=== PATIENT | male | born 1985 | race Caucasian/White ===

== ENCOUNTER 2018-06-29 17:33 | Inpatient (IN) | payer MEDICAID ==
[~2018-06-29] VITALS: Ht 177.8 cm; Wt 110.0 kg
[2018-06-29 18:08] LABS: HEMOGLOBIN 13.9 g/dl (14.0-17.9)
[2018-06-29 18:09] LABS: HEMATOCRIT 43.7 % (42.0-52.0); MEAN CORPUSCULAR HEMOGLOBIN 28.2 PG (27.0-31.0); MEAN CORPUSCULAR HGB CONC 31.8 g/dL (33.0-36.5); MEAN CORPUSCULAR VOLUME 88.6 FL (78-98); MEAN PLATELET VOLUME 8.5 FL (7.4-10.4); PLATELET COUNT 216 X10'3 (140-440); RED BLOOD COUNT 4.93 X10'6 (4.70-6.10); RED CELL DISTRIBUTION WIDTH 17.3 % (11.5-14.5); WHITE BLOOD COUNT 7.3 X10'3 (4.5-11.0)
[2018-06-29 18:26] LABS: ALANINE AMINOTRANSFERASE 58 U/L (12-78); ALBUMIN 3.1 G/DL (3.4-5.0); ALBUMIN/GLOBULIN RATIO 0.7 (1.1-1.5); ALKALINE PHOSPHATASE 182 IU/L (46-116); ANION GAP 4 (8-16); ASPARTATE AMINO TRANSFERASE 52 U/L (10-37); BILIRUBIN,TOTAL 1.8 MG/DL (0.1-1.0); BLOOD UREA NITROGEN 26 MG/DL (7-18); BUN/CREATININE RATIO 19.3 (5.4-32.0); CALCIUM 9.2 MG/DL (8.5-10.1); CHLORIDE 104 MMOL/L (99-107); CREATININE 1.35 MG/DL (0.60-1.10); GLUCOSE 135 MG/DL (70-104); POTASSIUM 3.8 MMOL/L (3.5-5.1); SODIUM 140 MMOL/L (135-145); TOTAL CARBON DIOXIDE 32.5 MMOL/L (24-32); TOTAL PROTEIN 7.5 G/DL (6.4-8.2); eGFR 60 ML/MIN
[2018-06-29 18:30] LABS: INR 1.2 INR; PARTIAL THROMBOPLASTIN TIME 27 SECONDS (22-32); PROTHROMBIN TIME 12.4 SECONDS (9.0-12.0)
[2018-06-29 18:39] LABS: CLARITY,URINE CLEAR (Clear); GLUCOSE, URINE NEGATIVE (Neg); KETONES,URINE NEGATIVE (Neg); LEUKOCYTE ESTERASE ,URINE NEGATIVE (Neg); NITRITES, URINE NEGATIVE (Neg); OCCULT BLOOD,URINE NEGATIVE (Neg); PROTEIN,URINE 30 mg/dl (Neg)
[2018-06-29 18:45] LABS: COLOR,URINE DARK YELLOW (Yellow); UA COLLECTION TYPE CLN CATCH MIDSTREAM; URINE AMPHETAMINE SCREEN POSITIVE (Neg); URINE BARBITUATE SCREEN NEGATIVE (Neg); URINE BENZODIAZEPINES SCREEN NEGATIVE (Neg); URINE CANNABINOID SCREEN NEGATIVE (Neg); URINE COCAINE SCREEN NEGATIVE (Neg); URINE METHADONE SCREEN NEGATIVE (Neg); URINE OPIATE SCREEN NEGATIVE (Neg); URINE PHENCYCLIDINE SCREEN NEGATIVE (Neg); WBC,URINE NONE SEEN /HPF (0-4)
[2018-06-29] MEDS ORDERED: aspirin 325mg tablet PO ONE (18:45)
[2018-06-29 18:46] LABS: BACTERIA,URINE NONE SEEN /HPF (Neg); HYALINE CASTS 0-3 /LPF (NEGATIVE); RBC,URINE NONE SEEN /HPF (0-2); SQUAMOUS EPITHELIAL CELL,UR NONE SEEN /LPF (FEW)
[2018-06-29] MEDS ORDERED: furosemide 10 MG/1 ML 10ml inj IV ONE (18:55)
[2018-06-29 19:11] LABS: TOTAL CELLS COUNTED 100
[2018-06-29 19:12] LABS: ANISOCYTOSIS 1+; PLATELET ESTIMATE NORMAL
[2018-06-29] MEDS ORDERED: ondansetron/PF 4mg/2ml inj IV PRN (19:50)
[2018-06-29] MEDS ORDERED: magnesium Cl slow-release 64mg tablet PO PRN (19:50)
[2018-06-29] MEDS ORDERED: acetaminophen 325mg tablet PO PRN ×2 (19:50)
[2018-06-29] MEDS ORDERED: potassium Cl 40MEQ/NS 500ml 500 ML IV PRN ×2 (19:50)
[2018-06-29] MEDS ORDERED: magnesium 4gm in 100ml NS 100 ML IV PRN (19:50)
[2018-06-29] MEDS ORDERED: magnesium hydroxide 30ml (MOM) UD suspension PO PRN (19:50)
[2018-06-29] MEDS ORDERED: magnesium 2GM in 50ml NS 50 ML IV PRN (19:50)
[2018-06-29] MEDS ORDERED: mag hydrox/Alum hydrox/simeth 30ml oral suspension PO PRN (19:50)
[2018-06-29] MEDS ORDERED: potassium Cl 20 mEq SR tablet PO PRN ×2 (19:50)
--- NOTE | 2018-06-29 20:42 | NUR ---
RELIEVING RN FOR BREAK, PT IS RESTING QUIETLY ON GURNEY, GAVE PT WARM BLANKET, PILLOW AND EMPTIED URINAL OF 700ML OF CLEAR YELLOW URINE
[2018-06-29] MEDS ORDERED: temazepam 15mg capsule PO PRN (21:00)
[2018-06-30] MEDS: furosemide 40mg/4ml inj IV SCH ×4 (00:31→23:42)
[2018-06-30] MEDS ORDERED: FURO-149 PO (00:37)
[2018-06-30] MEDS ORDERED: POTA10TA15 PO (00:39)
--- NOTE | 2018-06-30 01:00 | NUR ---
Report received from ER Nurse Cristina. Pt coming up from ER to room 2708S
[2018-06-30 02:00] VITALS: BP 154/120
[2018-06-30] MEDS ORDERED: LORazepam 2 mg/ml vial IV ONE (03:30)
--- NOTE | 2018-06-30 03:45 | NUR ---
Call placed to Dr Romero about pt BP 158/121 R and 152/108 L. He was 153/120 R and 149/104 L when he first came. had pt lay down and try to relax since he was falling asleep sitting on edge of bed, sweating, and fidgeting. Rechecked after he had rested a bit got got the high readings mentioned above. Order given for Ativan 1mg IV x 1 dose for patient.
--- NOTE | 2018-06-30 05:30 | NUR ---
RN and maintenance shop laborer both attempted to wake pt. RN needed recheck BP after orders obtained for Ativan dose by MD for anxiety and increased BP. He started cussing and swinging his arms at both of them and stated "get the .... away from me now!" he is refusing to wear his oxygen as well/
--- NOTE | 2018-06-30 05:30 | NUR ---
Pt needed to be rechecked for BP and needed labs taken. technical associate and RN were in with pt and trying to wake him up so that she could get labs and RN could get BP. He started swinging and cursing and stated to leave
--- NOTE | 2018-06-30 06:35 | NUR ---
Patient in room PCU 3017. I have received report from Rubia DEE and had the opportunity to ask questions and assume patient care.
[2018-06-30 06:57] VITALS: BP 129/108
[2018-06-30] MEDS: aspirin 81mg tablet.DR PO SCH (07:52)
[2018-06-30] MEDS: enoxaparin 30mg/0.3ml syringe SUBCUT SCH (08:00)
[2018-06-30] MEDS: K and/or MAG REPLACEMENT MC SCH (08:00)
[2018-06-30] MEDS: carvedilol 6.25mg tablet PO SCH ×3 (10:05→19:55)
[2018-06-30] MEDS: spironolactone 25 MG tablet PO SCH ×2 (10:05→15:54)
[2018-06-30 11:00] VITALS: BP 138/81
--- NOTE | 2018-06-30 12:48 | NUR ---
PAGER ID: [phone] MESSAGE: [id number] SUKHJINDER MARINA DELLA SHUBHAMGianna FRANCISCO Addendum: 06/30/18 at 1248 by Stacey Montalvo RN Amended: Links added.
--- NOTE | 2018-06-30 13:18 | NUR ---
Sent page to Dr. Sethi: PAGER ID: [phone] MESSAGE: [id number] [place]: Patient is increasingly irritable, becoming very anxious. Can he have PRN Ativan? Thanks, Julienne [phone]
[2018-06-30] MEDS: LORazepam 0.5 MG tablet PO PRN (15:54)
--- NOTE | 2018-06-30 16:15 | NUR ---
Patient refusing 1500 vital signs
--- NOTE | 2018-06-30 18:17 | NUR ---
Problems reprioritized. Patient report given, questions answered & plan of care reviewed with Rush DEE. Bedside report complete, patient stable at transfer of care.
--- NOTE | 2018-06-30 18:24 | NUR ---
[place] documentation: I have reviewed and agree with all interventions, assessments performed and documented by Concha DEE. [place] Medication Administration: For this medication-pass time frame, all medication were reviewed, dispensed, administered and documented per hospital policy by Concha DEE.
[2018-06-30 19:00] VITALS: BP 158/114
[2018-06-30 23:00] VITALS: BP 122/85
[2018-07-01 05:20] LABS: BASOPHILS # (AUTO) 0.1 X10'3 (0-0.2); BASOPHILS % (AUTO) 0.9 % (0-1); EOSINOPHILS # (AUTO) 0.1 X10'3 (0-0.9); EOSINOPHILS % (AUTO) 2.2 % (0-6); HEMOGLOBIN 12.9 g/dl (14.0-17.9); LYMPHOCYTES % (AUTO) 13.9 % (21-51); MEAN CORPUSCULAR HEMOGLOBIN 28.7 PG (27.0-31.0); MEAN CORPUSCULAR VOLUME 86.8 FL (78-98); MEAN PLATELET VOLUME 8.6 FL (7.4-10.4); MONOCYTES # (AUTO) 0.8 X10'3 (0-0.9); MONOCYTES % (AUTO) 11.5 % (2-12); NEUTROPHILS # (AUTO) 4.9 X10'3 (1.8-7.7); NEUTROPHILS % (AUTO) 71.5 % (42-75); PLATELET COUNT 195 X10'3 (140-440); RED BLOOD COUNT 4.49 X10'6 (4.70-6.10); RED CELL DISTRIBUTION WIDTH 17.4 % (11.5-14.5); WHITE BLOOD COUNT 6.9 X10'3 (4.5-11.0)
[2018-07-01 05:44] LABS: ALBUMIN 2.9 G/DL (3.4-5.0); ANION GAP 10 (8-16); BLOOD UREA NITROGEN 36 MG/DL (7-18); BUN/CREATININE RATIO 26.3 (5.4-32.0); CALCIUM 9.3 MG/DL (8.5-10.1); CHLORIDE 103 MMOL/L (99-107); CREATININE 1.37 MG/DL (0.60-1.10); GLUCOSE 99 MG/DL (70-104); MAGNESIUM 1.9 MG/DL (1.5-2.4); POTASSIUM 3.6 MMOL/L (3.5-5.1); SODIUM 141 MMOL/L (135-145); TOTAL CARBON DIOXIDE 28.3 MMOL/L (24-32); eGFR 59 ML/MIN
--- NOTE | 2018-07-01 06:07 | NUR ---
Patient in room PCU 3017. I have received report from Rush DEE and had the opportunity to ask questions and assume patient care. Will continue monitor patient.
[2018-07-01 07:00] VITALS: BP 148/93
[2018-07-01] MEDS: enoxaparin 30mg/0.3ml syringe SUBCUT SCH (08:00)
[2018-07-01] MEDS ORDERED: lisinopril 5mg tablet PO SCH (08:00)
[2018-07-01] MEDS: K and/or MAG REPLACEMENT MC SCH (08:00)
[2018-07-01] MEDS: furosemide 40mg/4ml inj IV SCH ×2 (10:09→15:13)
[2018-07-01] MEDS: aspirin 81mg tablet.DR PO SCH (10:09)
[2018-07-01] MEDS: spironolactone 25 MG tablet PO SCH (10:09)
[2018-07-01] MEDS: carVEDilol 12.5mg tablet PO SCH ×2 (10:10→19:27)
[2018-07-01 11:00] VITALS: BP 124/87
[2018-07-01 15:00] VITALS: BP 130/71
--- NOTE | 2018-07-01 15:01 | NUR ---
Problems reprioritized. Patient report given, questions answered & plan of care reviewed with Ellen DEE. Patient stable at transfer of care.
--- NOTE | 2018-07-01 15:32 | NUR ---
Pt tore off his life vest, states he can't breathe. Explained need for lifevest in detail but pt starting cursing at me.
--- NOTE | 2018-07-01 16:14 | NUR ---
Patient will not comply with optimal HOB placement, Concha Crowe RN. Addendum: 07/01/18 at 1615 by Concha Crowe RN Amended: Links added.
--- NOTE | 2018-07-01 16:28 | NUR ---
Page sent to Dr. Sethi PAGER ID: [phone] MESSAGE: [phone] [place]: Patient is refusing to wear life vest. Thanks, Concha [phone]
--- NOTE | 2018-07-01 18:26 | NUR ---
Problems reprioritized. Patient report given, questions answered & plan of care reviewed with Elisabeth.
[2018-07-01 18:30] VITALS: BP 125/81
--- NOTE | 2018-07-01 19:17 | NUR ---
Oxygen sats 70's, patient refusing to wear NC at this time. Will continue to try to coax patient.
[2018-07-01] MEDS ORDERED: carVEDilol 12.5mg tablet PO SCH (20:00)
[2018-07-01 22:30] VITALS: BP 119/83
[2018-07-02] MEDS: furosemide 40mg/4ml inj IV SCH (00:27)
[2018-07-02] MEDS: LORazepam 0.5 MG tablet PO PRN (01:07)
[2018-07-02 02:30] VITALS: BP 142/100
[2018-07-02 06:00] VITALS: BP 138/109
--- NOTE | 2018-07-02 06:35 | NUR ---
Patient in room PCU 3018. I have received report from Elisabeth DEE and had the opportunity to ask questions and assume patient care. Will continue to monitor patient and reinforce education about wearing the life vest and oxygen
--- NOTE | 2018-07-02 06:35 | NUR ---
Report given to day shift nurse, all questions answered.
--- NOTE | 2018-07-02 06:36 | NUR ---
Patient in room PCU 3018. I have received report from Chicho Patterson and had the opportunity to ask questions and assume patient care. Will continue to monitor.
[2018-07-02 06:39] LABS: BASOPHILS # (AUTO) 0.1 X10'3 (0-0.2); BASOPHILS % (AUTO) 0.9 % (0-1); EOSINOPHILS # (AUTO) 0.2 X10'3 (0-0.9); EOSINOPHILS % (AUTO) 2.3 % (0-6); HEMATOCRIT 41.6 % (42.0-52.0); HEMOGLOBIN 13.4 g/dl (14.0-17.9); LYMPHOCYTES # (AUTO) 0.9 X10'3 (1.1-4.8); MEAN CORPUSCULAR HEMOGLOBIN 28.3 PG (27.0-31.0); MEAN CORPUSCULAR HGB CONC 32.2 g/dL (33.0-36.5); MEAN CORPUSCULAR VOLUME 88.1 FL (78-98); MEAN PLATELET VOLUME 8.6 FL (7.4-10.4); MONOCYTES # (AUTO) 0.7 X10'3 (0-0.9); MONOCYTES % (AUTO) 9.3 % (2-12); NEUTROPHILS # (AUTO) 5.3 X10'3 (1.8-7.7); NEUTROPHILS % (AUTO) 74.5 % (42-75); PLATELET COUNT 204 X10'3 (140-440); RED BLOOD COUNT 4.72 X10'6 (4.70-6.10); RED CELL DISTRIBUTION WIDTH 16.9 % (11.5-14.5); WHITE BLOOD COUNT 7.1 X10'3 (4.5-11.0)
[2018-07-02 06:50] LABS: ANION GAP 10 (8-16); BLOOD UREA NITROGEN 41 MG/DL (7-18); CALCIUM 9.3 MG/DL (8.5-10.1); CHLORIDE 102 MMOL/L (99-107); CREATININE 1.28 MG/DL (0.60-1.10); GLUCOSE 110 MG/DL (70-104); MAGNESIUM 1.8 MG/DL (1.5-2.4); SODIUM 139 MMOL/L (135-145); TOTAL CARBON DIOXIDE 27.5 MMOL/L (24-32); eGFR 64 ML/MIN
--- NOTE | 2018-07-02 08:16 | NUR ---
Sent page to Dr. Sethi PAGER ID: [phone] MESSAGE: [id number] Quirino: Patient left AMA after signing the paper. Thanks, Julienne [phone]
--- NOTE | 2018-07-02 08:17 | NUR ---
Patient called RN to room, stated he was leaving and needed his clothes after refusing to wear the life vest after numerous attempts to reinforce education. The risks of leaving AMA were explained to the patient, he stated "I don't give a ...., my ride is in the parking lot" before signing the AMA form. The life vest was gathered and patient left with all of his belongings.
== END 2018-07-02 08:15 | disposition left against medical advice (07) | DRG 194 ==
LOC: ER 17:33 → ED HOLD 19:47 → PCU 3S 06-30 01:50 → CMPBEDREQ 06-30 02:34 → PCU 3S 07-01 09:20
PROVIDERS: ADMIT Hospitalist; ATTEND Internal Medicine
DX: I50.23 Acute on chronic systolic (congestive) heart failure (principal); J96.10 Chronic respiratory failure, unspecified whether with hypoxia or hypercapnia; N17.9 Acute kidney failure, unspecified; E44.1 Mild protein-calorie malnutrition; N18.9 Chronic kidney disease, unspecified; I42.7 Cardiomyopathy due to drug and external agent; F17.200 Nicotine dependence, unspecified, uncomplicated; R94.5 Abnormal results of liver function studies; Z53.21 Procedure and treatment not carried out due to patient leaving prior to being seen by health care provider; F15.19 Other stimulant abuse with unspecified stimulant-induced disorder; Z79.899 Other long term (current) drug therapy; Z82.49 Family history of ischemic heart disease and other diseases of the circulatory system; Z68.34 Body mass index [BMI] 34.0-34.9, adult
CPT/HCPCS: 36415; 71045; 76700; 80048; 80053; 80305; 81001; 82800; 83735; 83880; 84484; 85025; 85610; 85730; 87070; 93306; 96374; 99285; G0378; J1650; J1940; J2060